=== PATIENT | female | born 1950 | race Caucasian/White ===

== ENCOUNTER → 2016-08-29 | Outpatient (CLI) | payer OTHER ==
--- NOTE | 2016-08-29 10:17 | REPMRS ---
Patient History The patient states she had a clinical breast exam in 07/2016. Patient is postmenopausal and is nulliparous. Family history of colorectal cancer in mother at age 50 or over, breast cancer in paternal aunt at age 50 or over, and breast cancer in paternal cousin at age 50 or over. Benign excisional biopsy of the right breast. Digital Woman Screen Mammo: August 29, 2016 - Exam #: [id number] Bilateral CC and MLO view(s) were taken. Technologist: Debra Montero, Technologist Prior study comparison: August 28, 2015, digital woman screen mammo performed at [facility]. August 26, 2014, digital woman screen mammo performed at [facility]. August 26, 2013, digital woman screen mammo performed at [facility]. FINDINGS: The breast tissue is heterogeneously dense. This may lower the sensitivity of mammography. There is a moderate amount of heterogeneously dense fibroglandular tissue which is fairly symmetric. There is no interval development of dominant mass, architectural distortion, or clustered microcalcification typical of malignancy. There has been no change in the appearance of the mammogram from the prior studies. ASSESSMENT: BI-RADS/ACR category 1 mammogram. Negative. Recommendation Routine screening mammogram of both breasts in 1 year (for women over age 40). This mammogram was interpreted with the aid of an FDA-approved computer-aided dectection system. Electronically Signed By: Eduar Pinto MD 08/29/16 [id number]
== END ==
LOC: M WHC 09:43
PROVIDERS: ATTEND Family Medicine
DX: Z12.31 Encounter for screening mammogram for malignant neoplasm of breast (principal)

== ENCOUNTER → 2016-12-30 | Outpatient (CLI) | payer OTHER ==
[~2016-12-30] VITALS: Ht 170.2 cm; Wt 59.0 kg
[~2016-12-30] MED LIST: ALAW0.02 OU; CENT1TAB PO; FISH600C PO; FLON1SPR; LR 1,000 ML IV ONE; NS 1,000 ML IV ONE; OCUVCAP2 PO; PRED1SUS OU; PROPOFOL 200 MG/20 ML VIAL As Ordered ONE; REFRSOL OU; VITA-121 PO; ZYRT10CA PO
--- NOTE | 2016-12-30 10:03 | ROOR ---
Patient Name: Lola Riggs Procedure Date: 12/30/2016 9:42 AM Date of : 1950 Age: 66 Room: [facility] Gender: Female Note Status: Finalized Procedure: Colonoscopy Indications: Screening in patient at increased risk: Family history of 1st-degree relative with colorectal cancer Providers: Baltazar RAMIREZ MD Referring MD: Brent Reid MD Requesting Provider: Medicines: Monitored Anesthesia Care Complications: No immediate complications. Procedure: Pre-Anesthesia Assessment: - The heart rate, respiratory rate, oxygen saturations, blood pressure, adequacy of pulmonary ventilation, and response to care were monitored throughout the procedure. The Colonoscope was introduced through the anus and advanced to the cecum, identified by appendiceal orifice and ileocecal valve. The colonoscopy was performed without difficulty. The patient tolerated the procedure well. The quality of the bowel preparation was good. Findings: The perianal and digital rectal examinations were normal. (Exam: Complete, Prep: Good or Excellent.) The entire examined colon appeared normal on direct and retroflexion views. Impression: - The entire colon is normal on direct and retroflexion views. - No specimens collected. Recommendation: - Repeat colonoscopy in 5 years for screening purposes. Baltazar Ramirez MD Baltazar RAMIREZ MD 12/30/2016 10:03:05 AM This report has been signed electronically. Number of Addenda: 0 Note Initiated On: 12/30/2016 9:42 AM Estimated Blood Loss: Estimated blood loss: none.
[2016-12-30 10:20] VITALS: BP 111/65
== END | disposition home or self-care (01) ==
LOC: M OPP 08:21
PROVIDERS: ATTEND Internal Medicine Gastroenterology
DX: Z12.11 Encounter for screening for malignant neoplasm of colon (principal); Z80.0 Family history of malignant neoplasm of digestive organs; R12 Heartburn; M19.90 Unspecified osteoarthritis, unspecified site; Z78.0 Asymptomatic menopausal state; Z88.2 Allergy status to sulfonamides; Z88.1 Allergy status to other antibiotic agents; Z79.899 Other long term (current) drug therapy

== ENCOUNTER → 2017-01-03 | Outpatient (REF) | payer OTHER ==
[~2017-01-03] MED LIST changes: -LR 1,000 ML IV ONE; -NS 1,000 ML IV ONE; -PROPOFOL 200 MG/20 ML VIAL As Ordered ONE
[2017-01-03 18:07] LABS: MEAN CORPUSCULAR HEMOGLOBIN 31.7 pg (27.0-33.0); MEAN CORPUSCULAR HGB CONC 33.7 g/dl (32.0-36.5); MEAN CORPUSCULAR VOLUME 94.1 fl (80.0-96.0); RED CELL DISTRIBUTION WIDTH 11.9 % (11.5-14.5); WHITE BLOOD COUNT 3.4 K/mm3 (4.0-10.0)
[2017-01-03 18:13] LABS: ALBUMIN 4.2 GM/DL (3.2-5.2); ALBUMIN/GLOBULIN RATIO 1.24 (1.00-1.93); ALKALINE PHOSPHATASE 100 U/L (45-117); ALT/SGPT 27 U/L (12-78); ANION GAP 7 MEQ/L (8-16); AST/SGOT 12 U/L (15-37); BILIRUBIN,TOTAL 0.4 MG/DL (0.2-1.0); BLOOD UREA NITROGEN 19 MG/DL (7-18); CALCIUM LEVEL 9.4 MG/DL (8.8-10.2); CARBON DIOXIDE LEVEL 30 MEQ/L (21-32); CHLORIDE LEVEL 105 MEQ/L (98-107); CHOLESTEROL LEVEL 218 MG/DL (<200); CREATININE FOR GFR 0.84 MG/DL (0.55-1.02); GLOMERULAR FILTRATION RATE > 60.0 (>45); GLUCOSE, FASTING 93 MG/DL (80-110); SODIUM LEVEL 142 MEQ/L (136-145); TOTAL PROTEIN 7.6 GM/DL (6.4-8.2); TRIGLYCERIDES LEVEL 109 MG/DL (<150)
== END ==
LOC: M SFHCCLAY 09:52
PROVIDERS: ATTEND Family Medicine
DX: K21.9 Gastro-esophageal reflux disease without esophagitis (principal); E78.2 Mixed hyperlipidemia

== ENCOUNTER → 2017-09-03 | Outpatient (CLI) | payer OTHER | LOC: M WHC 13:50 | DX: Z12.31 Encounter for screening mammogram for malignant neoplasm of breast (principal) | CPT/HCPCS: 77067 ==

== ENCOUNTER → 2017-11-11 | Outpatient (REF) | payer MEDICARE, OTHER | LOC: M SFHCCLAY 10:46 | DX: R23.2 Flushing (principal); J30.89 Other allergic rhinitis; Z79.899 Other long term (current) drug therapy | CPT/HCPCS: 84443 ==

== ENCOUNTER → 2017-12-25 | Outpatient (REF) | payer MEDICARE, OTHER ==
[2017-12-26 13:13] LABS: COMPLEMENT C3 123 MG/DL (90-180); COMPLEMENT C4 25.2 MG/DL (10-40); IMMUNOGLOBULIN G 766 MG/DL (681-1648)
== END ==
LOC: M LABDRAWC 12-26 11:40
DX: J30.1 Allergic rhinitis due to pollen (principal); J30.81 Allergic rhinitis due to animal (cat) (dog) hair and dander; J30.89 Other allergic rhinitis; J32.0 Chronic maxillary sinusitis
CPT/HCPCS: 82103

== ENCOUNTER → 2019-01-12 | Outpatient (CLI) | payer MEDICARE, OTHER ==
[~2019-01-12] MED LIST changes: -PRED1SUS OU; +PRED1SUS2 OU
--- NOTE | 2019-01-12 16:28 | REP ---
HISTORY: Arthritis. COMPARISON: No priors for comparison. FINDINGS: No acute fracture or destructive osseous lesion. The mortise is intact. Large plantar and retrocalcaneal heel spurs are present.
== END ==
LOC: M CLY 15:42
PROVIDERS: ATTEND Family Medicine
DX: M77.31 Calcaneal spur, right foot (principal); M13.10 Monoarthritis, not elsewhere classified, unspecified site
CPT/HCPCS: 73610; 85652; 86038; 86200; 86617; G0463

== ENCOUNTER → 2019-01-12 | Outpatient (REF) | payer MEDICARE, OTHER | LOC: M SFHCCLAY 15:35 | PROVIDERS: ATTEND Family Medicine | DX: M13.10 Monoarthritis, not elsewhere classified, unspecified site (principal) ==

== ENCOUNTER → 2019-02-25 | Outpatient (REF) | payer MEDICARE, OTHER ==
[2019-02-25 11:31] LABS: HEMATOCRIT 42.4 % (36.0-47.0); HEMOGLOBIN 13.7 g/dl (12.0-15.5); MEAN CORPUSCULAR HEMOGLOBIN 30.4 pg (27.0-33.0); MEAN CORPUSCULAR HGB CONC 32.3 g/dl (32.0-36.5); PLATELET COUNT, AUTOMATED 198 10^3/uL (150-450); RED BLOOD COUNT 4.51 10^6/uL (4.00-5.40); WHITE BLOOD COUNT 3.1 10^3/uL (4.0-10.0)
[2019-02-25 11:46] LABS: ALBUMIN 3.8 GM/DL (3.2-5.2); ALT/SGPT 25 U/L (12-78); BILIRUBIN,TOTAL 0.5 MG/DL (0.2-1.0); BLOOD UREA NITROGEN 19 MG/DL (7-18); C REACTIVE PROTEIN QUANTITATIV < 0.30 MG/DL (0.00-0.30); CALCIUM LEVEL 8.8 MG/DL (8.8-10.2); CARBON DIOXIDE LEVEL 31 MEQ/L (21-32); CHLORIDE LEVEL 107 MEQ/L (98-107); CHOLESTEROL LEVEL 215 MG/DL (<200); CHOLESTEROL RISK RATIO 4.056 (<5); CREATININE FOR GFR 0.82 MG/DL (0.55-1.30); GLOMERULAR FILTRATION RATE > 60.0 (>45); GLUCOSE, FASTING 89 MG/DL (70-100); HDL CHOLESTEROL 53 MG/DL (>40); LDL CHOLESTEROL 126 MG/DL (<100); NON-HDL-C 162 MG/DL; POTASSIUM SERUM 3.5 MEQ/L (3.5-5.1); SODIUM LEVEL 143 MEQ/L (136-145); TOTAL PROTEIN 6.8 GM/DL (6.4-8.2); TRIGLYCERIDES LEVEL 179 MG/DL (<150)
[2019-02-27 00:07] LABS: ANA (HEP2) Negative (.)
== END ==
LOC: M SFHCCLAY 07:24
PROVIDERS: ATTEND Family Medicine
DX: E78.2 Mixed hyperlipidemia (principal); M13.10 Monoarthritis, not elsewhere classified, unspecified site; R76.8 Other specified abnormal immunological findings in serum

== ENCOUNTER → 2019-03-17 | Outpatient (CLI) | payer MEDICARE, OTHER ==
--- NOTE | 2019-03-17 19:47 | REP ---
REASON: Pain in the coccyx. PRIORS: None. FINDINGS: No acute fracture or destructive osseous lesion. If coccygeal disorder is of clinical concern consider MRI. Electronically Signed by Arturo Gorman DO 03/18/2019 11:10 A
--- NOTE | 2019-03-18 08:14 | REP ---
REASON: Left rib pain. The accompanying frontal view of the chest has been compared to a previous chest examination of 10/14/2014. FINDINGS: Five views of the ribs show no acute fracture or destructive osseous lesion. The accompanying frontal view of the chest shows no cardiomegaly, infiltrates, effusions or pneumothoraces. IMPRESSION: Negative ribs series. No change in the appearance of the chest. Electronically Signed by Arturo Gorman DO 03/18/2019 11:20 A
== END ==
LOC: M CLY 13:23
PROVIDERS: ATTEND Family Medicine
DX: R07.81 Pleurodynia (principal); M53.3 Sacrococcygeal disorders, not elsewhere classified
CPT/HCPCS: 71101; 72220; G0463

== ENCOUNTER → 2020-03-02 | Outpatient (REF) | payer MEDICARE, OTHER ==
[2020-03-02 11:56] LABS: HEMATOCRIT 44.5 % (36.0-47.0); HEMOGLOBIN 14.4 g/dl (12.0-15.5); MEAN CORPUSCULAR HEMOGLOBIN 29.8 pg (27.0-33.0); MEAN CORPUSCULAR HGB CONC 32.4 g/dl (32.0-36.5); MEAN CORPUSCULAR VOLUME 92.1 fl (80.0-96.0); PLATELET COUNT, AUTOMATED 219 10^3/uL (150-450); RED BLOOD COUNT 4.83 10^6/uL (4.00-5.40); WHITE BLOOD COUNT 4.2 10^3/uL (4.0-10.0)
== END ==
LOC: M SFHCCLAY 07:02
PROVIDERS: ATTEND Family Medicine
DX: E78.00 Pure hypercholesterolemia, unspecified (principal); M89.9 Disorder of bone, unspecified; K21.9 Gastro-esophageal reflux disease without esophagitis; E78.2 Mixed hyperlipidemia

== ENCOUNTER → 2020-05-29 | Outpatient (REF) | payer MEDICARE, OTHER | LOC: M LAB REF 17:15 | PROVIDERS: ATTEND Dermatology | DX: D23.61 Other benign neoplasm of skin of right upper limb, including shoulder (principal) ==

== ENCOUNTER → 2020-07-14 | Outpatient (CLI) | payer MEDICARE, OTHER ==
--- NOTE | 2020-07-14 12:33 | REP ---
INDICATION: R06.00, DYSPNEA. COMPARISON: Frontal view 03/17/2019 FINDINGS: The superior mediastinal structures are midline. The cardiac silhouette is unremarkable in size, shape, and position. The diaphragmatic surfaces of the lungs are regular, and the costophrenic angles are clear. The pulmonary monroy are clear. The imaged osseous structures are intact. IMPRESSION: There is no acute cardiopulmonary disease. <Electronically signed by Arturo Gorman > 07/14/20 [id number]
== END ==
LOC: M CLY 10:47
PROVIDERS: ATTEND Physician Assistant
DX: R06.00 Dyspnea, unspecified (principal); J30.1 Allergic rhinitis due to pollen; J30.81 Allergic rhinitis due to animal (cat) (dog) hair and dander; J30.89 Other allergic rhinitis; Z20.828 Contact with and (suspected) exposure to other viral communicable diseases
CPT/HCPCS: 36415; 71046; 82103; 82784; 86003; 86160; G0463; U0003

== ENCOUNTER → 2020-07-14 | Outpatient (REF) | payer MEDICARE, OTHER ==
[2020-07-18 01:08] LABS: ALPHA 1 ANTITRYPSIN 123 mg/dL (101-187); D001-IgE D pteronyssinus <0.10 kU/L (Class 0); E001-IgE Cat Epith/Dander 0.97 kU/L (Class II); E003-IGE HORSE EPITHELIA/DAND <0.10 kU/L (Class 0); E004-IGE COW DANDER <0.10 kU/L (Class 0); E005-IgE Dog Dander < 0.10 kU/L (Class 0); F002-IgE Milk < 0.10 kU/L (Class 0); F004-IgE Wheat < 0.10 kU/L (Class 0); F013-IgE Peanut < 0.10 kU/L (Class 0); F014-IgE Soybean < 0.10 kU/L (Class 0); F026-IgE Pork < 0.10 kU/L (Class 0); F027-IgE Beef < 0.10 kU/L (Class 0); F245-IgE Egg, Whole < 0.10 kU/L (Class 0); FX02-IgE Food Mix (Sea Foods) Negative (.); G002-IgE Bermuda Grass < 0.10 kU/L (Class 0); G008-IgE Kentucky Bluegrass 0.19 kU/L (Class 0/I); M001-IgE Penicillium chrysogen < 0.10 kU/L (Class 0); M002 IgE Cladosporium herbaru < 0.10 kU/L (Class 0); M003 IgE Aspergillus fumigatu < 0.10 kU/L (Class 0); M006-IgE Alternaria alternata < 0.10 kU/L (Class 0); T001-IgE Maple/Box Elder < 0.10 kU/L (Class 0); T003-IgE Common Silver Birch < 0.10 kU/L (Class 0); T006-IgE Cedar, Mountain < 0.10 kU/L (Class 0); T007-IgE Oak, White < 0.10 kU/L (Class 0); T008-IgE Elm, American < 0.10 kU/L (Class 0); T015-IgE Ash, White < 0.10 kU/L (Class 0); T041-IgE Hickory, White < 0.10 kU/L (Class 0); T070-IgE White Mulberry < 0.10 kU/L (Class 0); W001-IgE Ragweed, Short 0.21 kU/L (Class 0/I); W009-IgE Plantain, English < 0.10 kU/L (Class 0); W014-IgE Pigweed, Rough < 0.10 kU/L (Class 0); W018-IgE Sheep Sorrel < 0.10 kU/L (Class 0)
== END ==
LOC: M LABDRAWC 15:42
PROVIDERS: ATTEND Nurse Practitioner Family
DX: J30.1 Allergic rhinitis due to pollen (principal); J30.81 Allergic rhinitis due to animal (cat) (dog) hair and dander; J30.89 Other allergic rhinitis

== ENCOUNTER → 2020-07-14 | Outpatient (REF) | payer MEDICARE, OTHER | LOC: M SFHCCLAY 12:04 | PROVIDERS: ATTEND Physician Assistant | DX: R06.00 Dyspnea, unspecified (principal); Z20.828 Contact with and (suspected) exposure to other viral communicable diseases ==

== ENCOUNTER → 2021-02-20 | Outpatient (REF) | payer MEDICARE, OTHER ==
[2021-02-20 12:17] LABS: BASO % 0.9 % (0.0-1.0); EOS # 0.1 10^3/uL (0.0-0.5); EOS % 1.9 % (0.0-3.0); HEMATOCRIT 42.1 % (36.0-47.0); HEMOGLOBIN 13.7 g/dl (12.0-15.5); LYMPH # 1.3 10^3/uL (1.5-5.0); LYMPH % 41.4 % (24.0-44.0); MEAN CORPUSCULAR HEMOGLOBIN 30.3 pg (27.0-33.0); MEAN CORPUSCULAR HGB CONC 32.5 g/dl (32.0-36.5); MEAN CORPUSCULAR VOLUME 93.1 fl (80.0-96.0); MONO # 0.4 10^3/uL (0.0-0.8); MONO % 11.4 % (2.0-8.0); NEUTROPHILS # 1.4 10^3/uL (1.5-8.5); NEUTROPHILS % 44.4 % (36.0-66.0); PLATELET COUNT, AUTOMATED 192 10^3/uL (150-450); RED BLOOD COUNT 4.52 10^6/uL (4.00-5.40); WHITE BLOOD COUNT 3.2 10^3/uL (4.0-10.0)
[2021-02-20 12:45] LABS: ALBUMIN 3.9 GM/DL (3.2-5.2); ALT/SGPT 25 U/L (12-78); BILIRUBIN,TOTAL 0.5 MG/DL (0.2-1.0); BLOOD UREA NITROGEN 16 MG/DL (7-18); CALCIUM LEVEL 9.1 MG/DL (8.8-10.2); CARBON DIOXIDE LEVEL 31 MEQ/L (21-32); CHLORIDE LEVEL 106 MEQ/L (98-107); CHOLESTEROL LEVEL 212 MG/DL (<200); CHOLESTEROL RISK RATIO 3.925 (<5); CREATININE FOR GFR 0.92 MG/DL (0.55-1.30); FREE T4 1.05 NG/DL (0.76-1.46); GLOMERULAR FILTRATION RATE > 60.0 (>45); GLUCOSE, FASTING 90 MG/DL (70-100); HDL CHOLESTEROL 54 MG/DL (>40); LDL CHOLESTEROL 134 MG/DL (<100); NON-HDL-C 158 MG/DL; POTASSIUM SERUM 4.3 MEQ/L (3.5-5.1); SODIUM LEVEL 141 MEQ/L (136-145); TOTAL PROTEIN 6.7 GM/DL (6.4-8.2); TRIGLYCERIDES LEVEL 120 MG/DL (<150)
[2021-02-22 00:10] LABS: ANA (HEP2) Negative (.); CYCLIC CITRULLINATED PEPTIDE 5 units (0-19)
== END ==
LOC: M SFHCCLAY 07:19
PROVIDERS: ATTEND Family Medicine
DX: K21.9 Gastro-esophageal reflux disease without esophagitis (principal); E78.2 Mixed hyperlipidemia; R76.8 Other specified abnormal immunological findings in serum

== ENCOUNTER → 2021-06-11 | Outpatient (REF) | payer MEDICARE, OTHER ==
[2021-06-12 16:01] LABS: APPEARANCE, URINE CLEAR (CLEAR); BACTERIA, URINE AUTO NEGATIVE (NEGATIVE); BILIRUBIN, URINE AUTO NEGATIVE (NEGATIVE); BLOOD, URINE BLOOD NEGATIVE (NEGATIVE); COLOR, URINE YELLOW (YELLOW); GLUCOSE, URINE (UA) AUTO NEGATIVE (NEGATIVE); KETONE, URINE AUTO NEGATIVE (NEGATIVE); LEUKOCYTE ESTERASE, URINE AUTO NEGATIVE (NEGATIVE); NITRITE, URINE AUTO NEGATIVE (NEGATIVE); PROTEIN, URINE AUTO NEGATIVE (NEGATIVE); RBC, URINE AUTO 0 /HPF (0-3); SPECIFIC GRAVITY URINE AUTO 1.016 (1.002-1.035); SQUAMOUS EPITHELIAL CELL UR AU 0 /HPF (0-6); UROBILINOGEN, URINE AUTO 0.2 mg/dL (0.0-2.0); WBC, URINE AUTO 0 /HPF (0-3)
== END ==
LOC: M SFHCCAPE 17:07
PROVIDERS: ATTEND Physician Assistant
DX: R32 Unspecified urinary incontinence (principal)
CPT/HCPCS: 81001; 81002; 87086; G0463

== ENCOUNTER → 2021-09-21 | Outpatient (CLI) | payer MEDICARE, OTHER | LOC: M SOG 09:55 | PROVIDERS: ATTEND Orthopaedic Surgery Hand Surgery | DX: Z53.9 Procedure and treatment not carried out, unspecified reason (principal) ==

== ENCOUNTER → 2021-09-21 | Outpatient (CLI) | payer MEDICARE, OTHER | LOC: M SOG 10:22 | PROVIDERS: ATTEND Orthopaedic Surgery Hand Surgery | DX: M19.041 Primary osteoarthritis, right hand (principal) ==

== ENCOUNTER → 2021-10-10 | Outpatient (REF) | payer MEDICARE, OTHER | LOC: M SFHCCLAY 11:20 | PROVIDERS: ATTEND Family Medicine | DX: B35.1 Tinea unguium (principal) ==

== ENCOUNTER → 2021-10-31 | Outpatient (REF) | payer MEDICARE, OTHER | LOC: M SFHCDERM 17:25 | PROVIDERS: ATTEND Physician Assistant | DX: C44.712 Basal cell carcinoma of skin of right lower limb, including hip (principal) ==

== ENCOUNTER → 2022-01-17 | Outpatient (CLI) | payer MEDICARE, OTHER ==
[~2022-01-17] MED LIST changes: +CLAR10TA7 PO; +D 1010002 PO; +EPIN0.3I11 SQ; +MONT10TA97 PO; +OMEG12003 PO
== END ==
LOC: M LABSMTC 11:26
PROVIDERS: ATTEND Anesthesiology
DX: Z01.812 Encounter for preprocedural laboratory examination (principal); Z20.822 Contact with and (suspected) exposure to COVID-19

== ENCOUNTER → 2022-02-28 | Outpatient (CLI) | payer MEDICARE, OTHER ==
[~2022-02-28] MED LIST changes: +MV-M1CAP8 PO
== END ==
LOC: M LABSMTC 09:08
PROVIDERS: ATTEND Anesthesiology
DX: Z01.818 Encounter for other preprocedural examination (principal); Z11.52 Encounter for screening for COVID-19

== ENCOUNTER 2022-03-05 08:10 | Day surgery (SDC) | payer MEDICARE, OTHER ==
[~2022-03-05] VITALS: Ht 165.1 cm; Wt 58.1 kg
[~2022-03-05 08:10] MED LIST changes: +LIDOCAINE 2% 100MG/5ML SDV (FOR ANES.) As Ordered ONE; +NS 1,000 ML IV ONE; +propofoL 200 MG/20 ML VIAL As Ordered ONE
[2022-03-05 09:40] VITALS: BP 125/59
== END 2022-03-05 09:57 | disposition home or self-care (01) ==
LOC: M OPP 08:10
PROVIDERS: ATTEND Internal Medicine Gastroenterology
DX: Z12.11 Encounter for screening for malignant neoplasm of colon (principal); Z80.0 Family history of malignant neoplasm of digestive organs; M13.89 Other specified arthritis, multiple sites; Z79.52 Long term (current) use of systemic steroids; Z79.899 Other long term (current) drug therapy; Z88.1 Allergy status to other antibiotic agents; Z88.2 Allergy status to sulfonamides; Z82.0 Family history of epilepsy and other diseases of the nervous system; Z80.3 Family history of malignant neoplasm of breast; Z84.0 Family history of diseases of the skin and subcutaneous tissue

== ENCOUNTER → 2022-05-30 | Outpatient (REF) | payer MEDICARE, OTHER ==
[~2022-05-30] MED LIST changes: -LIDOCAINE 2% 100MG/5ML SDV (FOR ANES.) As Ordered ONE; -NS 1,000 ML IV ONE; -propofoL 200 MG/20 ML VIAL As Ordered ONE
[2022-05-30 12:32] LABS: CHOLESTEROL RISK RATIO 3.661 (<5)
== END ==
LOC: M SFHCCLAY 07:56
PROVIDERS: ATTEND Family Medicine
DX: E78.00 Pure hypercholesterolemia, unspecified (principal)

== ENCOUNTER → 2022-07-10 | Outpatient (REF) | payer MEDICARE, OTHER ==
[2022-07-10 22:23] LABS: COMPLEMENT C3 123.2 MG/DL (90.0-170.0); IMMUNOGLOBULIN A 114.9 MG/DL (40-350)
[2022-07-10 22:24] LABS: COMPLEMENT C4 28.2 MG/DL (12-36); IMMUNOGLOBULIN M 41.2 MG/DL (50-300)
[2022-07-15 21:07] LABS: ALPHA 1 ANTITRYPSIN 146 mg/dL (101-187); D001-IgE D pteronyssinus <0.10 kU/L (Class 0); E003-IGE HORSE EPITHELIA/DAND <0.10 kU/L (Class 0); E004-IGE COW DANDER <0.10 kU/L (Class 0); E005-IgE Dog Dander < 0.10 kU/L (Class 0); F002-IgE Milk < 0.10 kU/L (Class 0); F004-IgE Wheat < 0.10 kU/L (Class 0); F013-IgE Peanut < 0.10 kU/L (Class 0); F014-IgE Soybean < 0.10 kU/L (Class 0); F026-IgE Pork < 0.10 kU/L (Class 0); F027-IgE Beef < 0.10 kU/L (Class 0); F245-IgE Egg, Whole < 0.10 kU/L (Class 0); FX02-IgE Food Mix (Sea Foods) Negative (.); G002-IgE Bermuda Grass < 0.10 kU/L (Class 0); M001-IgE Penicillium chrysogen < 0.10 kU/L (Class 0); M002 IgE Cladosporium herbaru < 0.10 kU/L (Class 0); M003 IgE Aspergillus fumigatu < 0.10 kU/L (Class 0); M006-IgE Alternaria alternata < 0.10 kU/L (Class 0); T001-IgE Maple/Box Elder < 0.10 kU/L (Class 0); T003-IgE Common Silver Birch < 0.10 kU/L (Class 0); T006-IgE Cedar, Mountain < 0.10 kU/L (Class 0); T007-IgE Oak, White < 0.10 kU/L (Class 0); T008-IgE Elm, American < 0.10 kU/L (Class 0); T015-IgE Ash, White < 0.10 kU/L (Class 0); T070-IgE White Mulberry < 0.10 kU/L (Class 0); W001-IgE Ragweed, Short 0.18 kU/L (Class 0/I); W018-IgE Sheep Sorrel < 0.10 kU/L (Class 0)
== END ==
LOC: M LABDRAWC 17:26
PROVIDERS: ATTEND Allergy & Immunology
DX: J30.1 Allergic rhinitis due to pollen (principal); J32.0 Chronic maxillary sinusitis; R05.3 Chronic cough

== ENCOUNTER → 2023-02-05 | Outpatient (REF) | payer MEDICARE, OTHER ==
[2023-02-05 12:19] LABS: BASO % 0.7 % (0.0-1.0); EOS # 0.1 10^3/uL (0.0-0.5); EOS % 2.7 % (0.0-3.0); HEMOGLOBIN 13.5 g/dl (12.0-15.5); LYMPH # 1.4 10^3/uL (1.5-5.0); LYMPH % 33.4 % (24.0-44.0); MEAN CORPUSCULAR HEMOGLOBIN 30.6 pg (27.0-33.0); MEAN CORPUSCULAR HGB CONC 32.9 g/dl (32.0-36.5); MONO # 0.5 10^3/uL (0.0-0.8); MONO % 11.1 % (2.0-8.0); NEUTROPHILS # 2.1 10^3/uL (1.5-8.5); NEUTROPHILS % 51.9 % (36.0-66.0); PLATELET COUNT, AUTOMATED 209 10^3/uL (150-450); RED BLOOD COUNT 4.41 10^6/uL (4.00-5.40); WHITE BLOOD COUNT 4.1 10^3/uL (4.0-10.0)
[2023-02-05 12:22] LABS: AMORPHOUS SEDIMENT SMALL (NEGATIVE); APPEARANCE, URINE TURBID (CLEAR); BACTERIA, URINE AUTO NEGATIVE (NEGATIVE); BILIRUBIN, URINE AUTO NEGATIVE (NEGATIVE); BLOOD, URINE BLOOD NEGATIVE (NEGATIVE); CALCIUM OXALATE CRYSTALS SMALL; COLOR, URINE AMBER (YELLOW); GLUCOSE, URINE (UA) AUTO NEGATIVE (NEGATIVE); KETONE, URINE AUTO NEGATIVE (NEGATIVE); LEUKOCYTE ESTERASE, URINE AUTO NEGATIVE (NEGATIVE); MUCUS, URINE SMALL (NEGATIVE); NITRITE, URINE AUTO NEGATIVE (NEGATIVE); PROTEIN, URINE AUTO NEGATIVE (NEGATIVE); RBC, URINE AUTO 0 /HPF (0-3); SPECIFIC GRAVITY URINE AUTO 1.021 (1.002-1.035); SQUAMOUS EPITHELIAL CELL UR AU 1 /HPF (0-6); UROBILINOGEN, URINE AUTO 0.2 mg/dL (0.0-2.0); WBC, URINE AUTO 2 /HPF (0-3)
[2023-02-05 13:08] LABS: ALBUMIN 3.8 G/DL (3.2-5.2); ALKALINE PHOSPHATASE 98 U/L (46-116); ALT/SGPT 10 U/L (7.0-40); AST/SGOT < 8 U/L (<34); BILIRUBIN,TOTAL 0.8 MG/DL (0.3-1.2); BLOOD UREA NITROGEN 18 MG/DL (9-23); CALCIUM LEVEL 9.1 MG/DL (8.3-10.6); CARBON DIOXIDE LEVEL 32 MMOL/L (20-31); CHLORIDE LEVEL 104 MMOL/L (98-107); CHOLESTEROL LEVEL 201 MG/DL (<200); CHOLESTEROL RISK RATIO 3.98 (<5); CREATININE FOR GFR 0.85 MG/DL (0.55-1.30); GLOMERULAR FILTRATION RATE > 60.0 (>39); GLUCOSE, FASTING 92 MG/DL (74-106); HDL CHOLESTEROL 50.4 MG/DL (>40); NON-HDL-C 150.6 MG/DL; POTASSIUM SERUM 4.1 MMOL/L (3.5-5.1); SODIUM LEVEL 141 MMOL/L (136-145); TOTAL PROTEIN 6.3 G/DL (5.7-8.2); TRIGLYCERIDES LEVEL 138 MG/DL (<150)
[2023-02-05 13:10] LABS: TOTAL 25(OH) VITAMIN D 40.8 NG/ML (20.0-100.0)
[2023-02-05 13:43] LABS: ERYTHROCYTE SEDIMENTATION RATE 18 mm/hr (0-30)
== END ==
LOC: M SFHCCLAY 07:17
PROVIDERS: ATTEND Family Medicine
DX: E78.00 Pure hypercholesterolemia, unspecified (principal); M47.812 Spondylosis without myelopathy or radiculopathy, cervical region; J30.89 Other allergic rhinitis; M89.9 Disorder of bone, unspecified

== ENCOUNTER → 2023-04-09 | Outpatient (REF) | payer MEDICARE, OTHER | LOC: M SFHCCLAY 09:54 | PROVIDERS: ATTEND Family Medicine | DX: M81.0 Age-related osteoporosis without current pathological fracture (principal) ==

== ENCOUNTER → 2024-03-05 | Outpatient (REF) | payer MEDICARE, OTHER ==
[2024-03-05 12:24] LABS: BASO % 0.5 % (0.0-1.0); EOS % 0.8 % (0.0-3.0); HEMATOCRIT 44.7 % (36.0-47.0); HEMOGLOBIN 14.5 g/dl (12.0-15.5); LYMPH # 1.9 10^3/uL (1.5-5.0); LYMPH % 47.4 % (24.0-44.0); MEAN CORPUSCULAR HEMOGLOBIN 30.3 pg (27.0-33.0); MEAN CORPUSCULAR HGB CONC 32.4 g/dl (32.0-36.5); MEAN CORPUSCULAR VOLUME 93.5 fl (80.0-96.0); MONO # 0.4 10^3/uL (0.0-0.8); NEUTROPHILS # 1.6 10^3/uL (1.5-8.5); PLATELET COUNT, AUTOMATED 210 10^3/uL (150-450); RED BLOOD COUNT 4.78 10^6/uL (4.00-5.40)
[2024-03-05 12:33] LABS: ALBUMIN 4.2 G/DL (3.2-5.2); ALKALINE PHOSPHATASE 94 U/L (46-116); ALT/SGPT 23 U/L (7.0-40); AST/SGOT 13 U/L (<34); BILIRUBIN,TOTAL 0.8 MG/DL (0.3-1.2); BLOOD UREA NITROGEN 16 MG/DL (9-23); CALCIUM LEVEL 9.5 MG/DL (8.3-10.6); CARBON DIOXIDE LEVEL 31 MMOL/L (20-31); CHLORIDE LEVEL 105 MMOL/L (98-107); CHOLESTEROL LEVEL 241 MG/DL (<200); CHOLESTEROL RISK RATIO 4.43 (<5); GLOMERULAR FILTRATION RATE > 60.0 (>39); GLUCOSE, FASTING 94 MG/DL (74-106); HDL CHOLESTEROL 54.4 MG/DL (>40); NON-HDL-C 186.6 MG/DL; POTASSIUM SERUM 4.3 MMOL/L (3.5-5.1); SODIUM LEVEL 140 MMOL/L (136-145); TOTAL PROTEIN 6.7 G/DL (5.7-8.2); TRIGLYCERIDES LEVEL 158 MG/DL (<150)
[2024-03-05 12:34] LABS: FREE T4 1.16 NG/DL (0.89-1.76); THYROID STIMULATING HORMONE 2.607 uIU/ML (0.55-4.78)
== END ==
LOC: M SFHCCLAY 08:48
PROVIDERS: ATTEND Family Medicine
DX: J30.89 Other allergic rhinitis (principal); E78.00 Pure hypercholesterolemia, unspecified; M47.812 Spondylosis without myelopathy or radiculopathy, cervical region; K21.9 Gastro-esophageal reflux disease without esophagitis; E78.2 Mixed hyperlipidemia; R76.8 Other specified abnormal immunological findings in serum

== ENCOUNTER → 2024-07-26 | Outpatient (REF) | payer MEDICARE, OTHER ==
[2024-07-26 19:22] LABS: COMPLEMENT C3 153.9 MG/DL (90.0-170.0); COMPLEMENT C4 31.3 MG/DL (12-36); IMMUNOGLOBULIN A 120.8 MG/DL (40-350)
[2024-07-26 19:23] LABS: IMMUNOGLOBULIN G 711 MG/DL (650-1600)
== END ==
LOC: M LABDRAWC 16:36
PROVIDERS: ATTEND Allergy & Immunology
DX: J30.1 Allergic rhinitis due to pollen (principal); J30.81 Allergic rhinitis due to animal (cat) (dog) hair and dander; J30.89 Other allergic rhinitis; H10.45 Other chronic allergic conjunctivitis; R05.9 Cough, unspecified

== ENCOUNTER → 2025-03-08 | Outpatient (REF) | payer MEDICARE, OTHER | LOC: M LABDRAWC 11:58 | PROVIDERS: ATTEND Nurse Practitioner Family | DX: D80.4 Selective deficiency of immunoglobulin M [IgM] (principal) ==

== ENCOUNTER → 2025-03-08 | Outpatient (REF) | payer MEDICARE, OTHER ==
[2025-03-08 12:35] LABS: ALT/SGPT 21.0 U/L (7.0-40); AST/SGOT 18.0 U/L (<34); CALCIUM LEVEL 8.9 MG/DL (8.3-10.6); CARBON DIOXIDE LEVEL 31.0 MMOL/L (20-31); CHLORIDE LEVEL 103.0 MMOL/L (98-107); CHOLESTEROL LEVEL 219.0 MG/DL (<200); CHOLESTEROL RISK RATIO 4.82 (<5); CREATININE FOR GFR 0.9 MG/DL (0.55-1.30); GLOMERULAR FILTRATION RATE 67.9 (>39); LDL CHOLESTEROL 130.4 MG/DL (<100); NON-HDL-C 173.6 MG/DL; POTASSIUM SERUM 4.1 MMOL/L (3.5-5.1); SODIUM LEVEL 143.0 MMOL/L (136-145); TRIGLYCERIDES LEVEL 216.0 MG/DL (<150)
[2025-03-08 12:41] LABS: ESTIMATED AVERAGE GLUCOSE 114.0 MG/DL (60-110)
== END ==
LOC: M SFHCCLAY 08:45
PROVIDERS: ATTEND Physician Assistant
DX: Z00.00 Encounter for general adult medical examination without abnormal findings (principal); J30.89 Other allergic rhinitis; Z79.899 Other long term (current) drug therapy